=== PATIENT | male | born 1950 | race Caucasian/White ===

== ENCOUNTER → 2016-04-13 | Day surgery (SDC) | payer BC ==
[~2016-04-13] VITALS: Ht 170.2 cm; Wt 98.0 kg
[2016-04-13] VITALS (9 sets, daily range): BP systolic 116–135; BP diastolic 76–85
[~2016-04-13] MED LIST: HYDROCHLOROTHIA25 MG ORAL; Hydromorphone 0.5mg/0.5ml inj IVP PRN; Ketorolac 30mg Inj IV PRN; LISINOPRIL10 MG ORAL; Lidocaine 1% MPF 10mg/ml 5ml ONE; Norco 5mg/325mg tab ORAL PRN; Propofol 10mg/ml 20ml IV ONE; fentaNYL 100 mcg/2 mL IV PRN
--- NOTE | 2016-04-13 09:40 | Anethesia Preoperative Eval ---
Anesthesia Pre-op PMH/ROS General Date of Evaluation: Apr 13, 2016 Time of Evaluation: 09:30 Anesthesiologist: Julio ASA Score: ASA 2 Mallampati Score Class I : Soft palate, uvula, fauces, pillars visible Class II: Soft palate, uvula, fauces visible Class III: Soft palate, base of uvula visible Class IV: Only hard plate visible Mallampati Classification: Class II Surgeon: Dipak Diagnosis: Abdominal Pain Surgical Procedure: EGD/Colonocopy Anesthesia History: none Family History: no anesthesia problems Allergies: Coded Allergies: No Known Allergies (Unverified , 04/13/16) Medications: see eMAR Past Medical History Cardiovascular: Reports: HTN Pulmonary: Denies: COPD, JUDIE, asthma, other Gastrointestinal/Genitourinary: Denies: CRI, ESRD, GERD, other Neurologic/Psychiatric: Denies: CVA, TIA, dementia, depression/anxiety, other Endocrine: Denies: DM, hypothyroidism, other, steroids HEENT: Denies: [place] (L), [place] (R), cataract (L), cataract (R), glaucoma, other Hematology/Immune: Denies: DVT, anemia, bleeding disorder, other Musculoskeletal/Integumentary: Denies: DDD, DJD, OA, RA, edema, other Anesthesia Pre-op Phys. Exam Physician Exam Last Vital Signs Date Time Temp Pulse Resp B/P Pulse Ox O2 Delivery O2 Flow Rate FiO2 04/13/16 08:07 98.5 69 18 125/84 97 Room Air Constitutional: NAD Neurologic: CN 2-12 intact Cardiovascular: RRR Respiratory: CTA Gastrointestinal: S/NT/ND Airway Exam Mallampati Score: Class II SCARLET CHAVEZ M.D. Apr 13, 2016 09:40
--- NOTE | 2016-04-13 09:52 | Pre-Procedure Note/Attestation ---
Pre-Procedure Note/Attestation Complete Prior to Procedure Planned Procedure: not applicable Procedure Narrative: egd/colonoscopy Indications for Procedure Pre-Operative Diagnosis: dysphagia, screening colon Attestation I attest that I discussed the nature of the procedure; its benefits; risks and complications; and alternatives (and the risks and benefits of such alternatives ), prior to the procedure, with the patient (or the patient's legal outbound telemarketing representative). I attest that, if there was a reasonable possibility of needing a blood transfusion, the patient (or the patient's legal outbound telemarketing representative) was given the [facility] standardized written summary, pursuant to the Abelardo Bassem Blood Safety Act ([place] Health and Safety Code # 1645, as amended). I attest that I re-evaluated the patient just prior to the surgery and that there has been no change in the patient's H&P, except as documented below: IAN GALLEGOS Apr 13, 2016 09:52
--- NOTE | 2016-04-13 09:53 | Short Stay Surgery H&P ---
History of Present Illness History of Present Illness Chief Complaint screening colon see recent consult note HPI Nacho Espino is a 66 year old male who was admitted on for Dysphegia,Colon Screen Patient History Allergies: Coded Allergies: No Known Allergies (Unverified , 04/13/16) PAST MEDICAL HISTORY: Past Surgeries: Social History: Medication History Scheduled Hydrochlorothiazide* (Hydrochlorothiazide*), 25 MG ORAL DAILY, (Reported) Lisinopril* (Lisinopril*), 10 MG ORAL DAILY, (Reported) Physical Exam Vital Signs Last Vital Signs Date Time Temp Pulse Resp B/P Pulse Ox O2 Delivery O2 Flow Rate FiO2 04/13/16 08:07 98.5 69 18 125/84 97 Room Air Plan Attestation Are the patient's medical conditions optimized for surgery? IAN GALLEGOS Apr 13, 2016 09:53
--- NOTE | 2016-04-13 10:01 | Endoscopy Procedure Note ---
Endoscopy Procedure Note Indication for Procedure: gerd, screening colon Procedures Performed: EGD, colonoscopy Operative Findings/Diagnosis: esophagitis,hh,hemorrhpods,diverticulosis Specimen: yes Pt Tolerated Procedure Well: Yes Estimated Blood Loss: none Anesthesiologist: ashley Anesthesia: MAC Implant(s) used?: No 50 yrs or older w/o bx or poly: Yes 10yrs. F/U not recommended: Yes If not recommended, why?: Above average risk 10 yrs. F/U needed: Yes 18 years or older w/prev. colo: No IAN GALLEGOS Apr 13, 2016 10:01
--- NOTE | 2016-04-13 10:15 | Immediate Post-Op Evaluation ---
Immediate Post-Op Evalulation Immediate Post-Op Evalulation Procedure: EGD/Colonoscopy Date of Evaluation: Apr 13, 2016 Time of Evaluation: 10:30 IV Fluids: 700 Blood Products: 0 Estimated Blood Loss: 0 Urinary Output: 0 Blood Pressure Systolic: 130 Blood Pressure Diastolic: 80 Pulse Rate: 90 Respiratory Rate: 20 O2 Sat by Pulse Oximetry: 98 Temperature (Fahrenheit): 98 Pain Score (1-10): 1 Nausea: No Vomiting: No Complications na Patient Status: awake Hydration Status: adequate Given Within 1 Hr of Incision: SCARLET Garcia M.D. Apr 13, 2016 10:15
--- NOTE | 2016-04-13 10:16 | 48 Hour Post Anesthesia Eval ---
Post Anesthesia Evaluation Procedure: EGD/Colonoscopy Date of Evaluation: Apr 13, 2016 Time of Evaluation: 11:30 Blood Pressure Systolic: 130 0: 80 Pulse Rate: 90 Respiratory Rate: 20 Temperature (Fahrenheit): 98 O2 Sat by Pulse Oximetry: 97 Airway: patent Nausea: No Vomiting: No Pain Intensity: 1 Hydration Status: adequate Cardiopulmonary Status: stable Mental Status/LOC: patient returned to baseline Follow-up Care/Observations: na Post-Anesthesia Complications: na Follow-up care needed: N/A SCARLET CHAVEZ M.D. Apr 13, 2016 10:16
--- NOTE | 2016-04-13 19:58 | Procedure Note ---
DATE OF PROCEDURE: 04/13/2016 SURGEON: Laci Quesada M.D. PROCEDURE: Upper endoscopy with biopsy and colonoscopy with biopsy. ANESTHESIOLOGIST: Ap Kim M.D. INSTRUMENT: Olympus adult flexible upper endoscope and colonoscope. INDICATION: Chronic gastroesophageal reflux disease, abdominal pain, diarrhea, and screening colonoscopy evaluation. REASON FOR PROCEDURE: The procedure, risks, benefits, and possible consequences, including hemorrhage, aspiration, perforation and infection, and alternative treatments, were explained to the patient/legal guardian by Dr. Laci Quesada and the patient/legal guardian understood and accepted these risks. DESCRIPTION OF PROCEDURE: After informed consent was obtained and the patient was adequately sedated, Olympus upper endoscope was advanced from mouth into the second portion of the duodenum and retroflexion was performed in the stomach. 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 Biopsies from the distal esophagus and also proximal esophagus was obtained. The patient had evidence of a 5 cm hiatal hernia from 35 to almost 40 cm and 5 cm hiatal hernia. In the stomach, there was diffuse gastritis. Random biopsy from antrum of the stomach was obtained to rule out H. pylori infection. At this time, the upper endoscope was retrieved and the patient was turned over for colonoscopy. First, a rectal exam was performed, which was positive for internal hemorrhoid. Then, the scope was advanced from rectum into the cecum, then subsequently into the terminal ileum. Quality of prep was very good. The patient had normal terminal ileum. The patient had normal colonoscopy examination except for diverticulosis significant in the left colon and some scattered on the right especially in the cecum. Random biopsy of the right and left colon was obtained to rule out microscopic colitis. Retroflexion of rectum showed evidence of internal hemorrhoids. SUMMARY OF FINDINGS: 1. 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 2. Esophagitis. 3. A 5 cm hiatal hernia. 4. Gastritis, status post biopsy. 5. Internal hemorrhoids. 6. Diverticulosis. RECOMMENDATIONS: 1. Follow up biopsies and treat accordingly. 2. The patient will need to be on proton-pump inhibitor daily. 3. We will plan to see if we can schedule the patient for ablation of the Chacon's esophagitis. Laci Quesada M.D. DR: SALO JOB#: [id number] CC:
--- NOTE | 2016-04-13 23:18 | Cardiology Report ---
APPROVED REPORT EKG Measurement Heart [id number] Normal sinus rhythm Normal ECG
== END | disposition home or self-care (01) ==
LOC: GAS 06:54
DX: Z12.11 Encounter for screening for malignant neoplasm of colon (principal); K64.8 Other hemorrhoids; K57.30 Diverticulosis of large intestine without perforation or abscess without bleeding; R19.7 Diarrhea, unspecified; K21.9 Gastro-esophageal reflux disease without esophagitis; K29.70 Gastritis, unspecified, without bleeding; K22.70 Barrett's esophagus without dysplasia; K44.9 Diaphragmatic hernia without obstruction or gangrene; K20.9 Esophagitis, unspecified; I10 Essential (primary) hypertension; Z79.899 Other long term (current) drug therapy
CPT/HCPCS: 93005; 94003; 94150